=== PATIENT | female | born 1985 | race Caucasian/White ===

== ENCOUNTER 2016-09-21 11:36 | Emergency (ER) | payer MEDICAID ==
[2016-09-21 13:22] VITALS: BP 128/67
== END 2016-09-21 13:22 | disposition home or self-care (01) ==
LOC: ED 11:36
DX: H00.015 Hordeolum externum left lower eyelid (principal); R51 Headache

== ENCOUNTER 2017-12-15 23:05 | Emergency (ER) | payer OTHER ==
[~2017-12-15] VITALS: Ht 152.4 cm; Wt 119.3 kg
[2017-12-15 23:16] VITALS: Ht 152.4 cm; Wt 119.3 kg
[2017-12-16 01:14] LABS: PLATELET COUNT 234 x10^3mcL (130-400); RED CELL DISTRIBUTION WIDTH 12.4 % (11.5-14.5)
[2017-12-16 01:23] LABS: CALCIUM 9.1 mg/dL (8.5-10.1); CARBON DIOXIDE 27.3 mmol/L (21-32); CHLORIDE SERUM 105 mmol/L (98-107); CREATININE SERUM 0.9 mg/dL (0.6-1.0); GFR1 > 60 mL/min; GLUCOSE SERUM 109 mg/dL (74-106); POTASSIUM SERUM 3.9 mmol/L (3.5-5.1); SODIUM SERUM 141 mmol/L (136-145)
[2017-12-16 02:03] VITALS: BP 124/76
== END 2017-12-16 02:03 | disposition home or self-care (01) ==
LOC: ED 23:05
PROVIDERS: Emergency Medicine
DX: S80.862A Insect bite (nonvenomous), left lower leg, initial encounter (principal); S80.861A Insect bite (nonvenomous), right lower leg, initial encounter; R21 Rash and other nonspecific skin eruption; Z88.1 Allergy status to other antibiotic agents; W57.XXXA Bitten or stung by nonvenomous insect and other nonvenomous arthropods, initial encounter; Y93.89 Activity, other specified; Y92.89 Other specified places as the place of occurrence of the external cause; Y99.8 Other external cause status
CPT/HCPCS: J1885; Q0163